=== PATIENT | female | born 1980 | race Caucasian/White ===

== ENCOUNTER 2021-03-08 22:04 | Emergency (ER) | payer OTHER ==
[~2021-03-08] VITALS: Ht 162.6 cm; Wt 136.4 kg
[2021-03-08] MEDS ORDERED: amLODIPine 5mg tablet PO ONE (23:55)
[2021-03-09] MEDS ORDERED: DEXAMETHASONE 6 MG TABLET PO SCH ×2 (00:13→08:00)
[2021-03-09] MEDS ORDERED: AMLO5TAB4 PO (02:14)
[2021-03-09 02:42] VITALS: BP 209/124
== END 2021-03-09 02:45 | disposition home or self-care (01) ==
LOC: ER 22:05
DX: B34.9 Viral infection, unspecified (principal); Z20.822 Contact with and (suspected) exposure to COVID-19; R05 Cough; I10 Essential (primary) hypertension; Z72.89 Other problems related to lifestyle; Z79.899 Other long term (current) drug therapy
CPT/HCPCS: 71045; 87635; 99284; C9803; J8540

== ENCOUNTER 2021-06-11 01:18 | Emergency (ER) | payer OTHER ==
[~2021-06-11] VITALS: Ht 162.6 cm; Wt 136.4 kg
[~2021-06-11 01:18] MED LIST: AMLO5TAB4 PO
[2021-06-11 02:09] VITALS: BP 215/128
== END 2021-06-11 02:16 | disposition home or self-care (01) ==
LOC: ER 01:19
DX: J06.9 Acute upper respiratory infection, unspecified (principal); I10 Essential (primary) hypertension
CPT/HCPCS: 99281